=== PATIENT | male | born 1965 | race Caucasian/White ===

== ENCOUNTER 2020-03-22 15:07 | Emergency (ER) | payer MEDICAID ==
[~2020-03-22] VITALS: Ht 170.2 cm; Wt 61.2 kg
[2020-03-22 15:13] VITALS: BP_SYST 88
--- NOTE | 2020-03-22 15:13 | NUR ---
Patient to ER bed 05 to gown for evaluation. Side rails up.
--- NOTE | 2020-03-22 15:15 | NUR ---
Patient arrived in the ED c/o wounds on bilateral hands that started last Monday, possible spider bites per patient. Patient denied any chest pain or shortness of breath. Denied any fevers, chills, nausea, or vomiting. Patient is alert and oriented x4, respirations even and unlabored, speaking in full sentences, ambulating with a steady gait. VSS, pain level 8/10. Informed of approximate wait time. Instructed to notify ED staff for any changes in condition or worsening of symptoms. Patient verbalized understanding.
--- NOTE | 2020-03-22 15:21 | NUR ---
ER Dr. Burton at bedside examining patient.
[2020-03-22] MEDS ORDERED: BACITRACIN 1 GM OINT TP ONE (15:45)
--- NOTE | 2020-03-22 15:54 | NUR ---
Patient given written and verbal discharge instructions and verbalizes understanding. ER MD discussed with patient the results and treatment provided. Patient in stable condition. ID arm band removed. Rx of Neosporin, Keflex and Tylenol given. Patient educated on pain management and to follow up with PMD. Pain Scale 0/10. Opportunity for questions provided and answered. Medication side effect fact sheet provided.
[2020-03-22 15:55] VITALS: BP_SYST 88
== END 2020-03-22 15:55 | disposition home or self-care (01) ==
LOC: SED 15:07
DX: L03.113 Cellulitis of right upper limb (principal); L08.9 Local infection of the skin and subcutaneous tissue, unspecified; F15.10 Other stimulant abuse, uncomplicated
CPT/HCPCS: 99283

== ENCOUNTER 2020-06-17 15:10 | Emergency (ER) | payer SELFPAY ==
[~2020-06-17] VITALS: Ht 170.2 cm; Wt 59.0 kg
[2020-06-17 15:15] VITALS: BP_SYST 107
--- NOTE | 2020-06-17 15:15 | NUR ---
Patient to ER bed 7 to gown for evaluation. Side rails up.
--- NOTE | 2020-06-17 15:16 | NUR ---
PT AAO AND AMBULATORY C/O BILATERAL KNEES INJURIES. PT REPORTS HE HAS SPIDER BITES ON BOTH KNEES FOR THE PAST 5 DAYS THAT ARE GETTING WORSE. PT REPORTS PAIN 6/10 ON PAIN SCALE.
--- NOTE | 2020-06-17 15:40 | NUR ---
Dr Carter evaluating patient at bedside
[2020-06-17] MEDS ORDERED: CLINDAMYCIN PHOSPHATE 300 MG/2 ML VIAL IM ONE (16:30)
[2020-06-17] MEDS ORDERED: LIDOCAINE 1% 10 MG/ML, 20 ML MDV INJ ONE (16:30)
[2020-06-17] MEDS ORDERED: ACETAMINOPHEN 500 MG TABLET PO ONE (16:30)
[2020-06-17 17:39] VITALS: BP_SYST 107
--- NOTE | 2020-06-17 17:41 | NUR ---
Patient given written and verbal discharge instructions and verbalizes understanding. ER MD discussed with patient the results and treatment provided. Patient in stable condition. ID arm band removed. Rx of Clindamycin and Ibuprofen given. Patient educated on pain management and to follow up with PMD. Pain Scale 4/10 tolerable for patient . Opportunity for questions provided and answered. Medication side effect fact sheet provided.
== END 2020-06-17 17:41 | disposition home or self-care (01) ==
LOC: SED 15:10
DX: L02.415 Cutaneous abscess of right lower limb (principal); F12.90 Cannabis use, unspecified, uncomplicated
CPT/HCPCS: 10060; 96372; 99283; J2001; J3490; J7030

== ENCOUNTER 2020-09-12 16:37 | Emergency (ER) | payer MEDICAID ==
[2020-09-12] MEDS ORDERED: CLINDAMYCIN 900 mg/50mL D5W 50 ML IV ONE (17:15)
[2020-09-12] MEDS ORDERED: cefTRIAXone 500 MG in D5W 50 ML IV ONE (17:15)
[2020-09-12] MEDS ORDERED: NS 1000 ML IV.SOLN IV ONE (17:15)
[2020-09-12] MEDS ORDERED: VANCOMYCIN HCL 1,000 MG in D5W 250 ML IV ONE (17:15)
--- NOTE | 2020-09-12 17:30 | NUR ---
PT ELOPED FROM ED
[2020-09-12 17:36] LABS: BASOPHILS # (AUTO) 0.2 K/uL (0.0-0.2); BASOPHILS % (AUTO) 2.1 % (0.0-2.0); EOSINOPHILS # (AUTO) 0.2 K/uL (0.0-0.4); HEMATOCRIT 36.3 % (36-54); HEMOGLOBIN 12.2 g/dL (14.0-18.0); LYMPHOCYTES # (AUTO) 2.1 K/uL (1.0-5.5); LYMPHOCYTES % (AUTO) 18.4 % (20.5-51.5); MEAN CORPUSCULAR HEMOGLOBIN 32 pg (27-31); MEAN CORPUSCULAR HGB CONC 33 % (32-36); MEAN CORPUSCULAR VOLUME 95 fL (79.0-98.0); MONOCYTES % (AUTO) 8.3 % (1.7-9.3); NEUTROPHILS # (AUTO) 7.9 K/uL (1.8-7.7); NEUTROPHILS % (AUTO) 69.2 % (40.0-70.0); PLATELET COUNT (AUTO) 224 K/uL (130-430); RED BLOOD CELL COUNT(AUTO) 3.82 MIL/uL (4.2-6.2); RED CELL DISTRIBUTION WIDTH 14.1 % (9.0-15.0); WHITE BLOOD COUNT (AUTO) 11.5 K/uL (4.8-10.8)
[2020-09-12 18:36] LABS: PROTHROMBIN TIME 9.9 SECS (9.5-12.5)
[2020-09-12 18:41] LABS: CALCIUM 8.1 mg/dL (8.4-11.0); CREATININE 0.69 mg/dL (0.55-1.30); POTASSIUM 3.3 mmol/L (3.5-5.1)
[2020-09-12 18:46] LABS: ALBUMIN 3.1 g/dL (3.4-4.8); C-REACTIVE PROTEIN QUANT 4.1 mg/dL (0-0.5); TOTAL BILIRUBIN 0.3 mg/dL (0.0-1.0)
--- NOTE | 2020-09-13 11:37 | NUR ---
Skinny godoy in ED - 09/13/20 at 1137 by ROSLYNM PT ALIZA [id number]
== END 2020-09-12 18:24 | disposition left against medical advice (07) ==
LOC: SED 16:37
DX: L08.9 Local infection of the skin and subcutaneous tissue, unspecified (principal)
CPT/HCPCS: 36415; 80053; 83605; 85025; 85610-TC; 85730-TC; 86140; 87040-TC; 99284

== ENCOUNTER 2020-09-15 11:08 | Emergency (ER) | payer MEDICAID ==
[~2020-09-15] VITALS: Ht 170.2 cm; Wt 59.0 kg
--- NOTE | 2020-09-15 11:30 | NUR ---
Patient called for triage. He's in the restroom.
[2020-09-15 11:35] VITALS: BP_SYST 107
--- NOTE | 2020-09-15 11:42 | NUR ---
Patient triaged and placed in waiting room. VSS and patient appears in no acute distress at this time. Awaiting available bed, and MD notified of need for MSE.
[2020-09-15] MEDS ORDERED: LIDOCAINE 1% 10 MG/ML, 20 ML MDV INJ ONE (12:00)
--- NOTE | 2020-09-15 12:11 | NUR ---
Patient to ER chair for evaluation. Side rails up. Report given to ILEANA Menjivar.
--- NOTE | 2020-09-15 12:20 | NUR ---
PT CAME INTO ER TODAY FOR LEFT HAND PAIN AND SWELLING. CLEAR DISCHARGE PRESENT AND HAND IS SWOLLEN AND RED. REPORTS BEING BIT BY A SPIDER BUT DOES NOT REMEMBER WHEN. HE HAS BEEN SCRATCHING THE AREA AND IT HAS BECOME SWOLLEN
--- NOTE | 2020-09-15 12:30 | NUR ---
ER DR. NAQVI WITH PT FOR I&D, PT TOLERATED WELL
--- NOTE | 2020-09-15 12:50 | NUR ---
Patient given written and verbal discharge instructions and verbalizes understanding. ER MD discussed with patient the results and treatment provided. Patient in stable condition. ID arm band removed. Rx of NORCO AND BACTRIM given. Patient educated on pain management and to follow up with PMD. Pain Scale 9/10. Opportunity for questions provided and answered. Medication side effect fact sheet provided.
[2020-09-15 12:58] VITALS: BP_SYST 107
[2020-09-15] MEDS ORDERED: NAPR-688 PO (13:01)
== END 2020-09-15 12:58 | disposition home or self-care (01) ==
LOC: SED 11:08
DX: L02.512 Cutaneous abscess of left hand (principal)
CPT/HCPCS: 10060; 99283; J2001

== ENCOUNTER 2020-11-27 00:26 | Emergency (ER) | payer MEDICAID, SELFPAY ==
[~2020-11-27] VITALS: Ht 170.2 cm; Wt 59.0 kg
[~2020-11-27 00:26] MED LIST: NAPR-688 PO
[2020-11-27 00:38] VITALS: BP_SYST 132
[2020-11-27] MEDS ORDERED: IBUPROFEN 800 MG TABLET PO ONE (00:45)
[2020-11-27] MEDS ORDERED: IBUPROFEN 800 MG TABLET ONE (00:48)
[2020-11-27 01:55] VITALS: BP_SYST 132
== END 2020-11-27 01:55 | disposition home or self-care (01) ==
LOC: SED 00:26
DX: R50.9 Fever, unspecified (principal); M79.18 Myalgia, other site; Z20.822 Contact with and (suspected) exposure to COVID-19
CPT/HCPCS: 36415; 86710; 99283

== ENCOUNTER 2023-02-10 21:51 | Emergency (ER) | payer MEDICAID ==
[~2023-02-10] VITALS: Ht 170.2 cm; Wt 59.0 kg
[2023-02-10 21:51] VITALS: BP_SYST 128
[2023-02-10] MEDS ORDERED: KETOROLAC TROMETHAMINE 30 MG VIAL IM ONE (23:00)
[2023-02-11] MEDS ORDERED: CEPH-548 PO (00:11)
[2023-02-11] MEDS ORDERED: IBUP-1969 PO (00:11)
[2023-02-11 00:17] VITALS: BP_SYST 118
== END 2023-02-11 00:17 | disposition home or self-care (01) ==
LOC: SED 21:51
DX: M79.675 Pain in left toe(s) (principal); Z79.899 Other long term (current) drug therapy
CPT/HCPCS: 99283; 73660; J1885

== ENCOUNTER 2024-04-24 04:11 | Emergency (ER) | payer MEDICAID ==
[~2024-04-24] VITALS: Ht 170.2 cm; Wt 51.3 kg
[~2024-04-24 04:11] MED LIST changes: +CEPH-548 PO; +CLIN-142 PO; +DOXY100C5 PO; +IBUP-1969 PO; +IBUP-1971 PO
[2024-04-24 04:27] VITALS: BP_SYST 108; PULSE 73; RESP 18; TEMP 98.3; O2SAT 99
[2024-04-24] MEDS ORDERED: CEPH-548 PO (04:42)
[2024-04-24] MEDS ORDERED: CLIN-142 PO (04:42)
[2024-04-24 05:38] VITALS: BP_SYST 108; PULSE 73; RESP 18; TEMP 98.3; O2SAT 99
== END 2024-04-24 04:59 | disposition home or self-care (01) ==
LOC: SED 04:11
DX: L05.01 Pilonidal cyst with abscess (principal); Z79.899 Other long term (current) drug therapy; Z79.2 Long term (current) use of antibiotics
CPT/HCPCS: 99283

== ENCOUNTER 2024-05-03 01:59 | Emergency (ER) | payer MEDICAID ==
[~2024-05-03] VITALS: Ht 170.2 cm; Wt 52.2 kg
[2024-05-03 02:19] VITALS: BP_SYST 133; PULSE 71; RESP 16; TEMP 98.6; O2SAT 97
== END 2024-05-03 04:00 | disposition left against medical advice (07) ==
LOC: SED 01:59
DX: L02.31 Cutaneous abscess of buttock (principal); Z53.21 Procedure and treatment not carried out due to patient leaving prior to being seen by health care provider